=== PATIENT | male | born 1960 | race American Indian/Alaskan Native ===

== ENCOUNTER 2018-02-07 06:46 | Emergency (ER) | payer OTHER ==
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
[2018-02-07 11:02] VITALS: BP 124/70
== END 2018-02-07 11:02 | disposition home or self-care (01) ==
LOC: ED 06:46
DX: S16.1XXA Strain of muscle, fascia and tendon at neck level, initial encounter (principal); M50.30 Other cervical disc degeneration, unspecified cervical region; M25.512 Pain in left shoulder; V49.9XXA Car occupant (driver) (passenger) injured in unspecified traffic accident, initial encounter; Y93.89 Activity, other specified; Y92.488 Other paved roadways as the place of occurrence of the external cause; Y99.8 Other external cause status
CPT/HCPCS: 72040; 99283